=== PATIENT | male | born 1975 | race Caucasian/White ===

== ENCOUNTER 2017-10-10 15:03 | Emergency (ER) | payer OTHER ==
[2017-10-10 15:19] VITALS: RESP 20
[2017-10-10] MEDS ORDERED: Sodium Chloride 0.9% 1,000 ML IV STA (15:20)
[2017-10-10] MEDS ORDERED: Morphine 4 MG/ML VIAL ONE (15:23)
[2017-10-10] MEDS ORDERED: ceFAZolin 1 GM in Sodium Chloride 0.9% 100 ML IV STA (15:23)
[2017-10-10] MEDS ORDERED: Morphine 4 MG/ML VIAL IVP STA (15:29)
--- NOTE | 2017-10-10 16:27 | ED PDOC ---
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 Patient reports he was using a table saw, he accidentally slipped and got his fingers cut, the safety mechanism stopped the saw but he still had a partial cut to fingers. Patient describes the pain as sharp and constant. Last tetanus shot was a year ago. He denies any motor sensory deficits, fever, chills, weakness, neck pain or arm pain. No further medical complaints. PMD: None provided. Past Medical History Reviewed: Historical Data, Nursing Documentation, Vital Signs Vital Signs: Last Vital Signs Temp 98.1 F 10/10/17 15:11 Pulse 79 10/10/17 15:11 Resp 20 10/10/17 15:11 BP 119/70 10/10/17 15:11 Pulse Ox 99 10/10/17 15:11 - Medical History PMH: No Chronic Diseases - Surgical History Surgical History: No Surg Hx - Family History Family History: States: Unknown Family Hx - Home Medications Home Medications: Ambulatory Orders Medication Instructions Recorded Cefadroxil [Duricef] 500 mg PO BID #30 cap 10/10/17 Ibuprofen [Motrin Tab] 600 mg PO Q8 PRN #30 tab 10/10/17 oxyCODONE/Acetaminophen [Percocet 1 tab PO QID PRN #12 tab 10/10/17 5/325 mg Tab] - Allergies Allergies/Adverse Reactions: Allergies Allergy/AdvReac Type Severity Reaction Status Date / Time No Known Allergies Allergy Verified 10/10/17 15:11 Review of Systems Constitutional: Negative for: Fever, Chills Musculoskeletal: Positive for: Hand Pain (laceration of multiple fingers). Negative for: Neck Pain, Arm Pain Neurological: Negative for: Weakness Physical Exam - Reviewed Nursing Documentation Reviewed: Yes Vital Signs Reviewed: Yes - Physical Exam Appears: Positive for: Uncomfortable, In Acute Distress (severe) Extremity: Positive for: Normal ROM (Right hand: Flexion and extension at DIP, PIP, MCP joints normal. Left hand: flexion and extension at DIP, PIP, and MCP joints.), Capillary Refill (Right hand: <2sec, light touch intact. Left hand: < 2 sec, light touch intact. All lacerations hemostatic.), Other (Right hand: 3rd digit loss of distal part of distal fingertip just below 1x1cm. Visible dermis and subcutaneous tissue. Left hand: almost similar presentation in 4th digit. 3rd digit small superficial laceration across distal nail and fingertip. Fingertip intact on 3rd and 2nd digit. ) Neurologic/Psych: Positive for: Alert, Oriented - ECG O2 Sat by Pulse Oximetry: 99 (RA) Pulse Ox Interpretation: Normal Medical Decision Making Medical Decision Making: Initial Impression: Distal fingertip laceration and avulsion. Initial Plan: --Ancef 1GM/NS 100 ml x1 dose --Morphine 8 mg IVP --Sodium Chloride 1,000 ml IV 1,000 mls/hr --Hand left 3 views routine [RAD] --Reevaluation -Lacerations are well approximated and appear to not require any sutures at this time. X-Rays to r/o fractures and pain medications. -Patient will be soaked in warm soapy water and betadine baths. LEFT hand: No fx/dislocation DW [facility], who came to evaluate pt and performed laceration repairs. Scribe Attestation: Documented by Vic Kaur, acting as a scribe for Norma Delaney MD Provider Scribe Attestation: All medical record entries made by the Scribe were at my direction and personally dictated by me. I have reviewed the chart and agree that the record accurately reflects my personal performance of the history, physical exam, medical decision making, and the department course for this patient. I have also personally directed, reviewed, and agree with the discharge instructions and disposition. Disposition - Clinical Impression Clinical Impression: Laceration of multiple sites of left hand and fingers, Laceration of right middle finger - Disposition Referrals: Luis Collier MD [Medical Doctor] - 10/14/17 Disposition: Routine/Home Disposition Time: 18:00 Condition: IMPROVED Additional Instructions: FOLLOW UP WITH DR COLLIER INSTRUCTED Prescriptions: Cefadroxil [Duricef] 500 mg PO BID #30 cap Ibuprofen [Motrin Tab] 600 mg PO Q8 PRN #30 tab PRN Reason: Pain, Moderate (4-7) oxyCODONE/Acetaminophen [Percocet 5/325 mg Tab] 1 tab PO QID PRN #12 tab PRN Reason: severe pain only Instructions: Laceration Repair With Stitches (DC) Forms: [facility] (Malay)
[2017-10-10] MEDS ORDERED: Lidocaine 2% Inj (20ml) ONE (16:59)
[2017-10-10] MEDS ORDERED: Bupivacaine HCl 0.5% PF (30 ml) Inj ONE (16:59)
[2017-10-10] MEDS ORDERED: Povidone Iodine Topical 10% Sol ONE (17:00)
--- NOTE | 2017-10-10 17:24 | RAD ---
PROCEDURE: Left Hand Radiographs. HISTORY: 2nd, 3rd and 4th fingertip injuries COMPARISON: None. FINDINGS: BONES: No fracture identified. JOINTS: Normal. No osteoarthritic changes. SOFT TISSUES: Soft tissue injury, swelling distal tuft 2nd, 3rd and 4th digit. No visulaized radiopaque/visualized foreign body. OTHER FINDINGS: None. IMPRESSION: Soft tissue swelling without acute articular or osseous abnormality.
[2017-10-10 18:47] VITALS: BP 120/70; PULSE 78; TEMP 98
[2017-10-14 19:21] VITALS: O2SAT 99
== END 2017-10-10 18:15 | disposition home or self-care (01) ==
LOC: H.ER 15:03
DX: S61.212A Laceration without foreign body of right middle finger without damage to nail, initial encounter (principal); W29.8XXA Contact with other powered hand tools and household machinery, initial encounter
CPT/HCPCS: 73130; 96361; 96365; 96375; 99283; J0690; J1885; J2270; J7040